=== PATIENT | male | born 1970 | race Caucasian/White ===

== ENCOUNTER 2023-06-23 21:34 | Inpatient (IN) | payer OTHER ==
[~2023-06-23] VITALS: Ht 175.3 cm; Wt 69.4 kg
[2023-06-23] MEDS: KETOROLAC 60MG/2ML VIAL IM ONE (22:27)
[2023-06-23 23:38] LABS: CHLORIDE 102 mEq/L (98-107); HEMATOCRIT. 41.5 % (42.0-52.0); HEMOGLOBIN. 14.3 g/dL (14.0-18.0); MEAN CORPUSCULAR HEMOGLOBIN 31.2 pg (28.0-32.0); MEAN CORPUSCULAR HGB CONC 34.4 g/dL (31.0-37.0); MEAN CORPUSCULAR VOLUME 90.6 fL (80.0-94.0); POTASSIUM 4.4 mEq/L (3.5-5.1); RED BLOOD CELL COUNT 4.58 mill/uL (4.7-6.1); RED CELL DISTRIBUTION WIDTH 13.7 % (11.6-14.6); SODIUM 138 mEq/L (136-145); WHITE BLOOD COUNT 20.1 x1000/uL (4.5-11.0)
[2023-06-23 23:39] LABS: CARBON DIOXIDE 30 mEq/L (21-32)
[2023-06-23 23:43] LABS: INR 0.9; PARTIAL THROMBOPLASTIN TIME 23.1 sec (23.4-31.0); PROTHROMBIN TIME 10.6 sec (9.6-11.0)
[2023-06-23 23:44] LABS: CREATININE 1.2 mg/dL (0.6-1.3); GLUCOSE 158 mg/dL (70-105); UREA NITROGEN BLOOD 16 mg/dL (9-23)
[2023-06-23 23:45] LABS: DIFFERENTIAL COMMENT 1
[2023-06-23 23:46] LABS: ALANINE AMINOTRANSFERASE 18 IU/L (10-49); ALBUMIN 4.6 g/dL (3.2-4.8); ASPARTATE AMINOTRANSFERASE 30 IU/L (<34); BILIRUBIN TOTAL 0.6 mg/dL (0.1-1.0); PROTEIN TOTAL 7.6 g/dL (6.0-8.3)
[2023-06-24] VITALS (44 sets, daily range): BP systolic 89–121; BP diastolic 44–83; PULSE 60–98; RESP 11–23; TEMP 98–98.1
[2023-06-24] MEDS ORDERED: NICARDIPINE 40MG/200ML PREMIX 200 ML IV PRN (00:45)
[2023-06-24] MEDS: LEVETIRACETAM 500MG PREMIX 100 ML IV ONE (01:05)
[2023-06-24 01:12] LABS: HEMATOCRIT. 40.3 % (42.0-52.0); HEMOGLOBIN. 13.7 g/dL (14.0-18.0); MEAN CORPUSCULAR HEMOGLOBIN 30.8 pg (28.0-32.0); MEAN CORPUSCULAR HGB CONC 34.1 g/dL (31.0-37.0); MEAN CORPUSCULAR VOLUME 90.4 fL (80.0-94.0); MEAN PLATELET VOLUME 7.5 fl (7.4-10.4); PLATELET 324 x1000/uL (130-400); RED BLOOD CELL COUNT 4.46 mill/uL (4.7-6.1); RED CELL DISTRIBUTION WIDTH 13.7 % (11.6-14.6); WHITE BLOOD COUNT 16.9 x1000/uL (4.5-11.0)
[2023-06-24 01:18] LABS: DIFFERENTIAL COMMENT 1
[2023-06-24] MEDS: MORPHINE SULFATE 4 MG/ML INJ (FOR IV/IM USE) IM ONE (01:24)
[2023-06-24 07:43] LABS: MEAN PLATELET VOLUME 7.6 fl (7.4-10.4); PLATELET 357 x1000/uL (130-400)
[2023-06-24 07:49] LABS: PLATELET ESTIMATE NORMAL
[2023-06-24 08:07] LABS: PLATELET ESTIMATE NORMAL
[2023-06-24] MEDS ORDERED: NALOXONE HCL 0.4MG/ML VIAL IV PRN (09:00)
[2023-06-24] MEDS: MORPHINE SULFATE 2 MG/ML CPJ (NOT FOR IM USE) IV PRN (09:03)
[2023-06-24] MEDS ORDERED: ONDANSETRON HCL 4MG/2ML INJ IV PRN (12:00)
[2023-06-24] MEDS ORDERED: ACETAMINOPHEN 325MG TABLET PO PRN ×2 (12:00)
[2023-06-24] MEDS: CEFTRIAXONE 1GM/50ML 50 ML IV SCH (15:54)
[2023-06-24] MEDS: HYDROCODONE/ACETAMINOPHEN 5/325MG TABLET PO PRN (18:32)
[2023-06-25] VITALS (53 sets, daily range): BP systolic 96–150; BP diastolic 63–91; PULSE 62–93; RESP 11–21; TEMP 97.5–98.8
[2023-06-25 12:39] LABS: BASOPHILS % 0.5 % (0.0-2.0); EOSINOPHILS % 2.1 % (0.0-5.0); HEMATOCRIT. 39.8 % (42.0-52.0); HEMOGLOBIN. 13.5 g/dL (14.0-18.0); LYMPHOCYTES % 14.3 % (20.0-50.0); MEAN CORPUSCULAR HEMOGLOBIN 31.1 pg (28.0-32.0); MEAN CORPUSCULAR HGB CONC 33.8 g/dL (31.0-37.0); MEAN CORPUSCULAR VOLUME 92.2 fL (80.0-94.0); MEAN PLATELET VOLUME 7.7 fl (7.4-10.4); MONOCYTES % 6.6 % (2.0-8.0); NEUTROPHILS % 76.5 % (40.0-76.0); PLATELET 272 x1000/uL (130-400); RED BLOOD CELL COUNT 4.32 mill/uL (4.7-6.1); RED CELL DISTRIBUTION WIDTH 14.2 % (11.6-14.6); WHITE BLOOD COUNT 8.3 x1000/uL (4.5-11.0)
[2023-06-25 13:11] LABS: CHLORIDE 102 mEq/L (98-107); POTASSIUM 4.4 mEq/L (3.5-5.1); SODIUM 138 mEq/L (136-145)
[2023-06-25 13:12] LABS: CARBON DIOXIDE 31 mEq/L (21-32)
[2023-06-25 13:17] LABS: CREATININE 0.9 mg/dL (0.6-1.3); GLUCOSE 118 mg/dL (70-105); UREA NITROGEN BLOOD 11 mg/dL (9-23)
[2023-06-25 13:40] LABS: CALCIUM 9.7 mg/dL (8.7-10.4)
[2023-06-25] MEDS: HYDROCODONE/ACETAMINOPHEN 10/325MG TABLET PO PRN (21:05)
[2023-06-26] VITALS: BP 109/81; PULSE 66; RESP 12; TEMP 98.6
[2023-06-26 08:00] VITALS: BP 101/84; PULSE 80; RESP 15; TEMP 98
[2023-06-26 11:11] LABS: *AMPHETAMINES SCREEN URINE NEGATIVE (NEGATIVE); *BARBITURATES SCREEN URINE NEGATIVE (NEGATIVE); *BENZODIAZEPINES SCREEN URINE NEGATIVE (NEGATIVE); *COCAINE SCREEN URINE PRESUMPTIVE POSITIVE (NEGATIVE); CANNABINOID URINE SCREEN NEGATIVE (NEGATIVE); ECSTASY MDMA SCREEN URINE NEGATIVE (NEGATIVE); METHADONE URINE SCREEN NEGATIVE (NEGATIVE); OPIATES URINE SCREEN PRESUMPTIVE POSITIVE (NEGATIVE); PHENCYCLIDINE URINE SCREEN NEGATIVE (NEGATIVE)
[2023-06-26 12:00] VITALS: BP 131/93; PULSE 82; RESP 14; TEMP 98.3
[2023-06-26 16:00] VITALS: BP 125/87; PULSE 66; RESP 12; TEMP 98.6
[2023-06-26 20:05] VITALS: BP 96/63; PULSE 74; RESP 12; TEMP 97.7
[2023-06-27 00:05] VITALS: BP 117/96; PULSE 74; RESP 18; TEMP 97.9
[2023-06-27 04:05] VITALS: BP 106/79; PULSE 68; RESP 13; TEMP 97.3
[2023-06-27 08:00] VITALS: BP 114/76; PULSE 90; RESP 18; TEMP 97.1
[2023-06-27] MEDS: BUPROPION HCL 100MG SR TABLET PO SCH (09:05)
[2023-06-27] MEDS ORDERED: KETOROLAC 30MG/ML VIAL IV PRN (10:30)
[2023-06-27] MEDS ORDERED: IBUP-2029 MT (11:20)
[2023-06-27 12:00] VITALS: BP 111/79; PULSE 71; RESP 14; TEMP 98.9
[2023-06-27 13:44] VITALS: BP 114/76; PULSE 90; TEMP 97.1; O2SAT 100
== END 2023-06-27 14:30 | disposition home or self-care (01) | DRG 930 ==
LOC: ER 21:34 → MICUSO 06-24 01:08 → 3WST 06-26 00:31
PROVIDERS: ADMIT Internal Medicine; ATTEND Internal Medicine
DX: S06.6XAA Traumatic subarachnoid hemorrhage with loss of consciousness status unknown, initial encounter (principal); S27.0XXA Traumatic pneumothorax, initial encounter; J96.00 Acute respiratory failure, unspecified whether with hypoxia or hypercapnia; J18.9 Pneumonia, unspecified organism; D72.829 Elevated white blood cell count, unspecified; F41.9 Anxiety disorder, unspecified; Z59.02 Unsheltered homelessness; Y04.0XXA Assault by unarmed brawl or fight, initial encounter; Y92.89 Other specified places as the place of occurrence of the external cause; Y93.89 Activity, other specified; Y99.9 Unspecified external cause status
CPT/HCPCS: 36415; 70486; 71045; 71250; 72040; 72170; 80048; 80053; 80305; 85025; 86850; 86900; 97162; 99285; J0696; J1885; J1953; J2270